=== PATIENT | female | born 1985 | race Caucasian/White ===

== ENCOUNTER 2017-05-07 12:36 | Day surgery (SDC) | payer BC | END 2017-05-07 14:27 | disposition home or self-care (01) | LOC: SSS 12:36 | PROC: 3E0S3GC Introduction of Other Therapeutic Substance into Epidural Space, Percutaneous Approach (ICD-10-PCS; principal; 2017-05-07) | DX: G97.1 Other reaction to spinal and lumbar puncture (principal) ==